=== PATIENT | female | born 1950 | race Native Hawaiian/Other Pacific Islander ===

== ENCOUNTER 2017-01-18 20:08 | Emergency (ER) | payer MEDICARE ==
--- NOTE | 2017-01-18 22:06 | Cat Scan Report ---
FINAL REPORT EXAM: CT HEAD/BRAIN WO CON HISTORY: fall TECHNIQUE: CT imaging acquired through the head without intravenous contrast. Transaxial reformations are provided. PRIORS: None. FINDINGS: The ventricles, cisterns and sulci are within normal limits. No intraparenchymal or extra-axial mass, hemorrhage, or mass effect. Conde and white-matter differentiation is within normal limits for patient age. Normal spherical shape of the globes. Paranasal sinuses and mastoid air cells are clear. No skull or facial fracture visualized. Posterior superior scalp hematoma. No radiodense foreign body. IMPRESSION: No acute intracranial abnormality or skull fracture. A posterior superior scalp injury is present without radiodense foreign body.
[2017-01-18] MEDS ORDERED: TYLENOL PO ONE (23:52)
[2017-01-19] MEDS ORDERED: ULTRAM PO ONE (03:24)
[2017-01-19] MEDS ORDERED: BOOSTRIX IM ONE (03:24)
--- NOTE | 2017-01-19 03:25 | Emergency Department Report ---
ED Fall HPI - General Chief Complaint: Fall Stated Complaint: FALL/HEAD INJURY Time Seen by Provider: 01/19/17 03:18 Source: patient, RN notes reviewed, old records reviewed Mode of arrival: Ambulatory Limitations: No Limitations - History of Present Illness Initial Comments: This is a 66-year-old female. She is previously unknown to me. Past medical history includes diabetes, hypertension and high cholesterol. The patient presents to the ER after mechanical fall. She reports that she slipped and fallen to the back of her head, neck and back. Patient complains of headache, neck pain and back pain. There was no chest pain, dizziness, syncope before the fall. There is no extremity weakness or numbness. There is no abdominal pain. There is no bladder or bowel retention or incontinence. She thinks that she is up-to-date with tetanus vaccination. MD Complaint: fall -: Sudden Fall From: standing When Fall Occurred: 1 hour [employer] Fall Witnessed: no Place Fall Occurred: home Loss of Consciousness: none Prolonged Down Time?: no Symptoms Prior to Fall: none Location: head, neck Severity: moderate Context: tripped/slipped Associated Symptoms: headache, neck pain. denies: numbness, weakness, chest paint, shortness of breath, abdominal pain, hematuria, unable to walk, lightheaded, vertigo, confusion - Related Data Allergies Allergy/AdvReac Type Severity Reaction Status Date / Time No Known Allergies Allergy Unverified 01/18/17 21:19 ED Review of Systems ROS: Stated complaint: FALL/HEAD INJURY Other details as noted in HPI Constitutional: denies: malaise Eyes: denies: vision change ENT: denies: epistaxis Respiratory: denies: cough Cardiovascular: denies: chest pain Gastrointestinal: denies: abdominal pain, nausea, diarrhea Genitourinary: as per HPI Musculoskeletal: back pain Skin: lesions (ABRASION). denies: rash Neurological: headache Psychiatric: denies: anxiety ED Past Medical Hx - Past Medical History Previous Medical History?: Yes Hx Hypertension: Yes Hx Diabetes: Yes Additional medical history: HYPERLIPEDEMIA - Surgical History Past Surgical History?: Yes Additional Surgical History: R. SHOULDER REPAIR - Social History Smoking Status: Never Smoker ED Physical Exam - General Limitations: No Limitations General appearance: alert, in no apparent distress - Head Head exam: Present: normocephalic, other (there is a midline occipital ecchymosis and hematoma. There is no obvious laceration.) - Eye Eye exam: Present: normal appearance, EOMI. Absent: nystagmus - ENT ENT exam: Present: normal exam, normal orophraynx, mucous membranes moist, normal external ear exam - Neck Neck exam: Present: normal inspection, full ROM. Absent: tenderness, meningismus - Respiratory Respiratory exam: Present: normal lung sounds bilaterally. Absent: respiratory distress, wheezes, rales, rhonchi, stridor, chest wall tenderness, accessory muscle use, decreased breath sounds, prolonged expiratory - Cardiovascular Cardiovascular Exam: Present: regular rate, normal rhythm, normal heart sounds. Absent: bradycardia, tachycardia, irregular rhythm, systolic murmur, diastolic murmur, rubs, gallop - GI/Abdominal GI/Abdominal exam: Present: soft, normal bowel sounds. Absent: distended, tenderness, guarding, rebound, rigid, pulsatile mass - Extremities Exam Extremities exam: Present: normal inspection, full ROM, normal capillary refill. Absent: tenderness, pedal edema, joint swelling, calf tenderness - Back Exam Back exam: Present: normal inspection, full ROM. Absent: tenderness, CVA tenderness (R), CVA tenderness (L), muscle spasm, paraspinal tenderness, vertebral tenderness - Neurological Exam Neurological exam: Present: alert, oriented X3, normal gait, other (Extraocular movements intact. Tongue midline. No facial droop. Facial sensation intact to light touch in the V1, V2, V3 distribution bilaterally. 5 and 5 strength in 4 extremities.. Sensation is intact to light touch in 4 extremities.). Absent : motor sensory deficit - Psychiatric Psychiatric exam: Present: normal affect, normal mood - Skin Skin exam: Present: warm, dry, intact, normal color. Absent: rash ED Course Vital Signs 01/18/17 01/19/17 01/19/17 21:34 02:30 04:08 Temperature 97.8 F Pulse Rate 80 Respiratory 18 16 18 Rate Blood Pressure 151/83 Blood Pressure [Left] O2 Sat by Pulse 100 96 Oximetry 01/19/17 04:42 Temperature 97.9 F Pulse Rate 79 Respiratory 16 Rate Blood Pressure Blood Pressure 203/100 [Left] O2 Sat by Pulse 97 Oximetry - Reevaluation(s) Reevaluation #1: 01/19/17 04:36 Differential diagnosis: Intracranial injury, cervical spine injury, superficial hematoma, mechanical fall, mild concussion Assessment and plan: 66-year-old elderly female status post mechanical fall. Has a GCS of 15, with an NIH score of 0. Superficial scalp hematoma is appreciated, does not require laceration repair. Up-to-date with tetanus vaccination. Has a GCS of 15. NIH score is 0. Complains of neck pain, has diffuse neck pain. She will be treated symptomatically. Noncontrast CT scan of the cervical spine is pending. CT scan of the brain is negative. X-ray of the chest is negative. Reevaluation #2: 01/19/17 05:41 Repeat examination unchanged. Noncontrast CT scan of the cervical spine is negative. Elevated blood pressure is appreciated. As per the [employer] clinical policy: initiating treatment for asymptomatic hypertension in the ED is not necessary when patients have follow-up; (2) Rapidly lowering blood pressure in asymptomatic patients in the ED is unnecessary and may be harmful in some patients; (3) When ED treatment for asymptomatic hypertension is initiated, blood pressure management should attempt to gradually lower blood pressure and should not be expected to be normalized during the initial ED visit. The patient is asymptomatic. She can follow-up with a primary care doctor for elevated blood pressure. ED Medical Decision Making - Lab Data Vital Signs 01/18/17 01/19/17 21:34 04:08 Temperature 97.8 F Pulse Rate 80 Respiratory 18 18 Rate Blood Pressure 151/83 O2 Sat by Pulse 100 Oximetry - Radiology Data Radiology results: report reviewed, image reviewed Noncontrast CT scan of the brain is negative. X-ray of the chest is negative. Noncontrast CT scan of the brain and cervical spine are negative Critical care attestation.: If time is entered above; I have spent that time in minutes in the direct care of this critically ill patient, excluding procedure time. ED Disposition Clinical Impression: Scalp hematoma, Fall Disposition: DISCHARGED TO HOME OR SELFCARE Is pt being admited?: No Does the pt Need Aspirin: No Condition: Stable Instructions: Concussion (ED), Minor Head Injury (ED) Additional Instructions: Continue current outpatient medications. Follow up with her primary care doctor within the next 7-10 days. The patient most likely has a concussion. Symptoms of concussion include dizziness, lightheadedness, forgetfulness, fatigue, sensitivity to light, sensitivity to sound. Rest and avoid heavy lifting. Avoid strenuous physical activity. Avoid contact sports. Return to the ER right away with shortness of breath, change in mental status, intractable nausea or vomiting, extremity weakness, extremity numbness, bladder or bowel retention/incontinence. Please note that blood pressure was elevated in the emergency room. This should be followed up by her primary care doctor within the recommended timeframe. Long-term complications of hypertension/elevated blood pressure include stroke, heart attack, disability, , paralysis, loss of quality of life. Patient can take Tylenol every 4 hours as needed for pain, this can be alternated with ibuprofen every 6 hours with food. Referrals: PRIMARY CARE, [Primary Care Provider] - 3-5 Days JOSE G BLOCK MD [Staff Physician] - 3-5 Days
[2017-01-19] MEDS ORDERED: TORADOL IM ONE (05:18)
--- NOTE | 2017-01-19 05:29 | Cat Scan Report ---
FINAL REPORT PROCEDURE: CT CERVICAL SPINE WO CON TECHNIQUE: Computerized tomography of the cervical spine was performed from the skull base to T1 without contrast material. HISTORY: neck pain fall COMPARISON: No prior studies are available for comparison. FINDINGS: There are no fractures or malalignments. There is normal lordosis of the cervical spine. Disc spaces are normal. Facet joints are intact. Skull base and foramen magnum are intact. Prevertebral soft tissues are normal in thickness. IMPRESSION: No significant abnormality.
[2017-01-19 07:26] VITALS: BP 147/82
--- NOTE | 2017-01-19 07:29 | XRay Report ---
ROUTINE CHEST, TWO VIEWS: HISTORY: Back pain after fall, chest pain. The trachea, heart, mediastinal contour, lung ruiz and bony thorax are unremarkable. There is mild to moderate multilevel thoracic spondylosis. No compression deformity or displaced fracture is appreciated. IMPRESSION: No acute cardiopulmonary process.
== END 2017-01-19 06:40 | disposition home or self-care (01) ==
LOC: ED 20:08
DX: S00.03XA Contusion of scalp, initial encounter (principal); I10 Essential (primary) hypertension; E11.9 Type 2 diabetes mellitus without complications; W01.0XXA Fall on same level from slipping, tripping and stumbling without subsequent striking against object, initial encounter; Y93.89 Activity, other specified; Y92.89 Other specified places as the place of occurrence of the external cause; Y99.8 Other external cause status; E78.5 Hyperlipidemia, unspecified
CPT/HCPCS: 70450; 71020; 72125; 90471; 90715; 96372; 99284; J1885

== ENCOUNTER 2017-08-16 12:28 | Day surgery (SDC) | payer MEDICARE ==
[~2017-08-16 12:28] MED LIST: ANCEF/STERILE WATER 2 GM/20 ML 2 GM/20 ML SYRINGE IV NR; WATER FOR IRRIG STERILE IR ONE
[2017-08-16] MEDS ORDERED: D50W (25GM) Vial 50 ML IV ONE ×2 (13:12→15:38)
[2017-08-16] MEDS ORDERED: D50W (25GM) Vial IV ONE (13:26)
--- NOTE | 2017-08-16 14:09 | Anesthesia Day of Surgery ---
Anesthesia Day of Surgery - Day of Surgery Patient Examined: Yes Patient H&P Reviewed: Yes Patient is NPO: Yes
--- NOTE | 2017-08-16 14:09 | Anesthesia Consultation ---
Anesthesia Consult and Med Hx Date of service: 08/16/17 - Airway Anesthetic Teeth Evaluation: Poor ROM Head & Neck: Adequate Mental/Hyoid Distance: Adequate Mallampati Class: Class II Intubation Access Assessment: Probably Good - Pulmonary Exam CTA: Yes - Cardiac Exam Cardiac Exam: RRR - Pre-Operative Health Status ASA Pre-Surgery Classification: ASA3 Proposed Anesthetic Plan: General - Pulmonary Hx Smoking: No Hx Sleep Apnea: No (YESSY PRE SCREEN LOW RISK) - Cardiovascular System Hx Hypertension: Yes (X 3 YRS) - Endocrine Hx Insulin Dependent Diabetes: Yes - Other Systems Hx Cancer: No
[2017-08-16] MEDS ORDERED: DIPRIVAN 10 MG/ML IV ONE (14:12)
[2017-08-16] MEDS ORDERED: SUBLIMAZE ONE (14:13)
[2017-08-16] MEDS ORDERED: NACL 0.9% 1000 ML 1,000 ML IV SCH (15:00)
[2017-08-16] MEDS ORDERED: PEPCID PO NR (15:00)
[2017-08-16] MEDS ORDERED: NEO SYNEPHRINE/NS Syringe(OR USE) IV ONE (15:00)
[2017-08-16] MEDS ORDERED: XYLOCAINE MPF 2% ONE (15:10)
[2017-08-16] MEDS ORDERED: ZOFRAN ONE (15:12)
--- NOTE | 2017-08-16 15:25 | Post Operative Note ---
Date of procedure: 08/16/17 Pre-op diagnosis: hematuria Post-op diagnosis: same Findings: unremarkable Procedure: cysto rpg hydrodistension Anesthesia: MAKENNA Surgeon: JULIAN PERDUE Estimated blood loss: none Pathology: none Condition: stable Disposition: PACU
--- NOTE | 2017-08-16 15:27 | Discharge Summary ---
Short Stay Discharge Plan Activity: no restrictions, other Weight Bearing Status: Full Weight Bearing Diet: low fat, low cholesterol, low salt Special Instructions: other (inc fluids ) Follow up with: PRIMARY CARE, [Primary Care Provider] - 7 Days JULIAN PERDUE MD [Staff Physician] - 6 Weeks
[2017-08-16] MEDS ORDERED: D50W (25GM) Syringe IV ONE (15:40)
--- NOTE | 2017-08-16 15:49 | Fluoroscopy Report ---
RETROGRADE PYELOGRAM: History: Interstitial cystitis. There is adequate filling of the ureters and intrarenal collecting systems with no filling defects or anatomic abnormalities identified. Impression: No abnormality identified.
[2017-08-16 16:57] VITALS: BP 151/81
--- NOTE | 2017-08-16 20:21 | Post Anesthesia Evaluation ---
- Post Anesthesia Evaluation Patient Participated: Yes Airway Patent: Yes Stable Respiratory Function: Yes Nausea/Vomiting: No Temp > 96.8F: Yes Pain Manageable: Yes Adequeate Hydration: Yes Anesthesia Complications: No Block Receding Appropriately: Not Applicable Patient on Ventilator: No
--- NOTE | 2017-08-16 22:02 | Operative Report ---
PREOPERATIVE DIAGNOSES: Hematuria, pain, and irritative voiding symptoms. POSTOPERATIVE DIAGNOSES: Hematuria, pain, and irritative voiding symptoms with minimal evidence of cystitis. PROCEDURE: Cystoscopy, hydrodistention, retrogrades. SURGEON: Israel Multani MD ANESTHESIA: General. FINDINGS: This is a woman who has some irritative symptoms and some microscopic hematuria. She now presents for cystoscopy. All risks and complications were discussed. DESCRIPTION OF PROCEDURE: The patient brought to the operating room and placed on the operating table. Following induction of anesthesia, placed in lithotomy position, prepped and draped in usual sterile fashion. Bimanual exam was normal. Cystoscopy was carried out showed a somewhat floppy bladder. Good capacity. Hydrodistention was carried out twice with over 850 mL each time. Retrograde showed good filling, good drainage with no persistent filling defects. The patient tolerated the procedure well. There was minimal glomerulations nothing significant and non-significant ulcers. PLAN: Observation. She may use [place] if her symptoms get worse, but there is no acute pathology noted. JOB# [id number] WARD/ROSARIO
== END 2017-08-16 17:20 | disposition home or self-care (01) ==
LOC: OR 12:28
PROVIDERS: ATTEND Urology
DX: N30.81 Other cystitis with hematuria (principal); E11.9 Type 2 diabetes mellitus without complications; I10 Essential (primary) hypertension; E78.00 Pure hypercholesterolemia, unspecified; E66.9 Obesity, unspecified; Z68.27 Body mass index [BMI] 27.0-27.9, adult; Z79.899 Other long term (current) drug therapy
CPT/HCPCS: 52260; 74420; 82962; A4217; C1758; J0690; J2370; J2405; J2704; J3010; J7030; Q9967